=== PATIENT | female | born 1980 | race Caucasian/White ===

== ENCOUNTER 2017-03-02 22:00 | Inpatient (IN) | payer MEDICAID ==
[~2017-03-02] VITALS: Ht 170.2 cm; Wt 84.4 kg
--- NOTE | ~2017-03-02 | PN ---
Unit #: [id number] #: [id number] Patient: LEANN RODRIGUEZ [id number] [facility] [address] [place] [address] [id number] MR#: [id number] NAME: LEANN RODRIGUEZ ROOM: P209 Age: 36 Sex: F Admission Date: 03/03/2017 : 1980 Attending Physician: Danny Rankin M.D. Admitting Physician: Danny Rankin M.D. Primary Care Physician: Generic Doctor Not In System [facility] PROGRESS NOTES DATE 03/04/2017 DISCUSSION Ms. Rodriguez is a 36-year-old white female who was seen today and chart was reviewed and case was discussed with the staff. She has been anxious, withdrawn and rather seclusive to herself and has been complaining of poor sleep at night. Meanwhile, she has been taking medications and tolerating them fairly well with no reported side effects. MENTAL STATUS EXAMINATION Young white female who was casually dressed with fair personal hygiene, appears to be in no acute distress or discomfort. She was awake and alert on interaction with intact orientation. Her mood was anxious with congruent affect. She denies any suicidal or homicidal ideations. Her insight and judgement remains slightly impaired. TREATMENT PLAN 1. We will continue her on her current medications and treatment protocol. We will monitor her response to the medication and make further adjustments as needed. 2. We will continue to follow up. Dictated by... Jez Mccauley/antoni TD: 03/05/2017 21:59 JOB #: [id number] Unit #: [id number] #: [id number] Patient: LEANN RODRIGUEZ PROGRESS NOTES Page 1 of 1 X Danny Rankin MD X PROGRESS NOTE
--- NOTE | ~2017-03-02 | PN ---
Unit #: [id number] #: [id number] Patient: LEANN RODRIGUEZ [id number] [facility] [address] [place] [address] [id number] MR#: [id number] NAME: LEANN RODRIGUEZ ROOM: P209 Age: 36 Sex: F Admission Date: 03/03/2017 : 1980 Attending Physician: Danny Rankin M.D. Admitting Physician: Danny Rankin M.D. Primary Care Physician: Generic Doctor Not In System [facility] PROGRESS NOTES DATE OF SERVICE 03/05/2017 DISCUSSION Ms. Rodriguez is a 36-year-old white female who was seen today. Chart was reviewed and case was discussed with staff. She reports being much better after she slept good last night with the addition of trazodone and appears to be coming out of detox without any complications. She has been taking the medications and tolerating them fairly well with no reported side effects. MENTAL STATUS EXAMINATION Young white female who is casually dressed with fair personal hygiene, appears to be in no acute distress or discomfort. She was awake and alert on interaction with intact orientation. Her mood is anxious with congruent affect. She denies any suicidal or homicidal ideations and also denies any auditory or visual hallucinations. Her insight and judgment remain slightly impaired. TREATMENT PLAN 1. We will continue her on her current medications and treatment protocol. We will monitor her response to medications and make further adjustments as needed. 2. We will continue to follow up. Dictated by... Danny Rankin M.D. IAA/bzg TD: 03/06/2017 08:55 JOB #: [id number] Unit #: [id number] #: [id number] Patient: LEANN RODRIGUEZ [facility] PROGRESS NOTES Page 1 of 1 X Danny Rankin MD PROGRESS NOTE
--- NOTE | ~2017-03-02 | PA ---
Unit #: [id number] #: [id number] Patient: LEANN RODRIGUEZ [id number] [facility] [address] [place] [address] [id number] MR#: [id number] NAME: LEANN RODRIGUEZ ROOM: P209 Age: 36 Sex: F Admission Date: 03/03/2017 : 1980 Date of Assessment: 03/03/2017 Attending Physician: Danny Rankin M.D. Admitting Physician: Danny Rankin M.D. Primary Care Physician: Generic Doctor Not In System PSYCHIATRIC ASSESSMENT DATE OF SERVICE 03/03/2017. IDENTIFYING DATA Ms. Rodriguez is a 36-year-old white female, who is a resident of [place], [place], and was self-referred to the hospital on a voluntary basis as a transfer from [facility] Emergency Room. CHIEF COMPLAINT "I overdosed on my prescription medications." HISTORY OF PRESENT ILLNESS Ms. Hauser sis a 36-year-old white female, who was taken to the [facility] Emergency Room after she stated that she overdosed on her prescription medication. She took approximately 20 Paxil and 20 Requip and about 30 Benadryl and reports that she took them in a suicide attempt and that she has been off her oxycodone since Saturday and she wanted to go to sleep and to end it and reports that she takes 10 to 12 oxycodone 10 mg a day and then she also takes two Klonopin 1 mg a day and has used morphine 100 mg a day for the last 3 years and reports that her usage has been increased and she has been using pain pills and has been getting frustrated and increasingly hopeless about her situation and therefore, she decided to kill herself and was taken to the emergency room and was medically cleared and then transferred to us. SUBSTANCE ABUSE HISTORY The patient reports extensive history of substance abuse and dependence including alcohol, cannabis, opioids, cocaine, amphetamines, benzodiazepines, and methadone, and currently, opioids and benzodiazepines appear to be her drug of choice. PAST PSYCHIATRIC HISTORY The patient has had a history of multiple inpatient psychiatric treatment, and she reports that she is from [place] and she recently moved to [place] and that she has had eight hospitalizations at [facility] in [place] as well as at [facility] in [facility] and has been diagnosed and treated for mood disorder and is supposed to be on Paxil and Requip. PAST MEDICAL HISTORY The patient's medical history is insignificant. Unit #: [id number] #: [id number] Patient: LEANN RODRIGUEZ ALLERGIES No known medication allergies. PERSONAL AND SOCIAL HISTORY A 36-year-old white female, who reports that she is single and unemployed and essentially homeless and has poor social support system. MENTAL STATUS EXAMINATION Young white female, who was casually dressed with fair personal hygiene, appears to be in no acute distress or discomfort. She was awake and alert on interaction with intact orientation to time, place, and person. Her mood was anxious and depressed with a congruent affect. Her speech was slow and restricted in content. Her thought processes were disorganized with some looseness of associations and flight of ideas and suicidal ideations. Her insight and judgment remain significantly impaired. DIAGNOSTIC IMPRESSION Psychiatric: Major depressive disorder, recurrent, moderate, without psychotic features; opioid dependence, moderate, in acute withdrawals; and benzodiazepine abuse, moderate. Medical: None. Stressors: Moderate psychosocial stressors. TREATMENT PLAN 1. The patient has presented with a history of substance abuse and mood disorder and has been decompensating and will need inpatient hospitalization for safety and stabilization. We will start her back on her home medications and we will adjust the medications and monitor response. 2. Supportive therapy was provided to the patient. 3. Safe, structured, and nourishing environment will be provided. ESTIMATED LENGTH OF STAY 5 to 7 days. ABILITY TO HELP SELF Limited. WILLINGNESS TO HELP SELF The patient appears to be willing to help self. STRENGTHS 1. Communicative. 2. Cooperative. PROBLEMS 1. Chronic dysphoric symptoms. 2. Poor social support system. DISCHARGE CRITERIA This will be contingent upon the patient's ability to show resolution of her depression and anxiety and her ability to stay safe to herself, particularly after discharge from the hospital. Dictated by... Danny Rankni M.D. Unit #: [id number] #: [id number] Patient: LEANN RODRIGUEZ IAA/modl TD: 03/03/2017 17:37 JOB #: [id number] PSYCHIATRIC ASSESSMENT Page 1 of 1 X Danny Rankin MD PSYCHIATRIC ASSESSMENT
--- NOTE | ~2017-03-02 | HP ---
Unit #: [id number] #: [id number] Patient: LEANN FERRER [id number] [place] [address] [id number] MR#: [id number] NAME: LEANN FERRER ROOM: P209 Age: 36 Sex: F Admission Date: 03/03/2017 : 1980 Attending Physician: Danny Rankin M.D. Admitting Physician: Danny Rankin M.D. Primary Care Physician: Generic Doctor Not In System HISTORY AND PHYSICAL HISTORY OF PRESENT ILLNESS Patient is a 36-year-old female admitted to [address] [place] [address] on 03/03/2017 for suicidal ideations with an attempt to overdose. She also is addicted to illicit and prescription medications. PAST MEDICAL HISTORY 1. Prescription and illicit drug abuse. 2. Depression and anxiety. 3. Restless leg syndrome. PAST SURGICAL HISTORY 1. Cholecystectomy. 2. Appendectomy. 3. Bilateral tubal ligation. SOCIAL HISTORY She is unemployed. She lives with her and two children. She has a history of polysubstance use including cocaine, morphine, Oxycontin, methamphetamines and Klonopin. FAMILY MEDICAL HISTORY Noncontributory. ALLERGIES No known drug allergies. CURRENT MEDICATIONS Paxil and Requip. REVIEW OF SYSTEMS CONSTITUTIONAL: No fever or chills. HEENT: Denies any sore throat, ear pain or runny nose. CARDIOVASCULAR: Denies chest pain, irregular heart rhythm or palpitations. CHEST: Denies shortness of breath or cough. No hemoptysis. GASTROINTESTINAL: Denies nausea, vomiting, diarrhea or chronic constipation. ENDOCRINE: Denies history of increased thirst or urination. No recent significant weight loss or gain. GENITOURINARY: Denies dysuria, frequency, or hematuria. SKIN: Denies any rashes. HEMATOLOGIC: Denies history of increased bleeding or bruising. MUSCULOSKELETAL: Denies any hot, swollen joints. No generalized muscle pain. Unit #: [id number] #: [id number] Patient: LEANN FERRER NEUROLOGIC: Denies problems with vision or speech. No frequent, severe headaches. No numbness, tingling or weakness in any extremities. Denies loss of bladder or bowel control. PHYSICAL EXAM GENERAL: She is awake, alert and oriented in no acute distress. VITAL SIGNS: Temperature 98.7, heart rate 193, respiration 18, blood pressure 112/73. HEIGHT: 5'7". WEIGHT: 186 pounds. SKIN: Warm and dry without rash or lesion. HEENT: Normocephalic. TMs not viewed. Oral and nasal passages clear. Conjunctivae clear. PERRLA. EOMs intact. NECK: Supple without lymphadenopathy or thyromegaly. HEART: Regular rate and rhythm without murmur. LUNGS: Clear. ABDOMEN: Soft, nontender. : Not done. EXTREMITIES: No evidence of cyanosis, clubbing or edema. Moves all without focal deficit. NEUROLOGICAL: Grossly within normal limits. Cranial Nerves: II: Visual hays are intact. III, IV AND : Extraocular movements are intact. Pupils are equal, round and reactive to light. V: Facial sensation is grossly normal. VII: Facial movements and expression are normal. VIII: Auditory acuity grossly intact. IX, X: Uvula is midline. Phonation is normal. XI: Patient shrugs shoulders and turns head normally. XII: Tongue protrudes in the midline. Sensory and Motor Function: Sensory and motor sensation is grossly normal. Motor: moves all extremities well. IMPRESSION 1. Psychiatric admission. 2. Drug abuse. 3. Depression and anxiety. 4. Restless leg syndrome. RECOMMENDATIONS Psychiatric per psychiatrist. MEDICAL: No contraindication to participate in facility activities. MEDICAL PROGNOSIS Good. MEDICAL CONDITION Stable. Dictated by... Venkata Bautista Unit #: [id number] #: [id number] Patient: LEANN FERRER TD: 03/03/2017 23:39 JOB #: [id number] HISTORY AND PHYSICAL Page 1 of 1 X CHARIS HIRSCH APRN HISTORY AND PHYSICAL
--- NOTE | ~2017-03-02 | DS ---
Unit #: [id number] #: [id number] [facility]: [facility] [id number] [facility] [address] [place] [address] [id number] MR#: [id number] NAME: LEANN RODRIGUEZ ROOM: P209 Age: 36 Sex: F Admission Date: 03/03/2017 : 1980 Discharge Date: 03/06/2017 Attending Physician: Danny Rankin M.D. Primary Care Physician: Generic Doctor Not In System DISCHARGE SUMMARY IDENTIFYING DATA Ms. Rodriguez is a 36-year-old, , white female who is a resident of [place], [place] and was self-referred to the hospital on a voluntary basis as a transfer from [facility] [place] [facility] Emergency Room. DISCHARGE DIAGNOSES Psychiatric: Major depressive disorder, recurrent, moderate, without psychotic features; opioid dependence, moderate and acute withdrawals; benzodiazepine dependence, moderate. Medical: None. Stressors: Moderate psychosocial stressors. HISTORY OF PRESENT ILLNESS Please see initial psychiatric evaluation for details. PAST PSYCHIATRIC HISTORY Please see initial psychiatric evaluation for details. PAST MEDICAL HISTORY Please see initial psychiatric evaluation for details. HOSPITAL COURSE The patient [facility] and was oriented to the hospital environment. Routine p.r.n. medications were initiated, and she was started back on her home medications and medications were adjusted and she was closely monitored. She was maintained on her home supply of Paxil and Requip, and opioid detox protocol was initiated. She was initially seen to be restless, anxious, and rather uncomfortable, though was able to come out of the detox without any complications and was willing to continue treatment on an outpatient basis and as such, it was decided that she will be discharged home and will continue treatment on an outpatient basis. DISCHARGE MEDICATIONS Paxil 30 mg a day for depression and Requip 1 mg at bedtime for restless legs syndrome. DISCHARGE CONDITION Stable. PROGNOSIS Fair. Unit #: [id number] #: [id number] Patient: LEANN RODRIGUEZ Dictated by... Jez Mccauley/kervinl TD: 03/06/2017 19:16 JOB #: [id number] DISCHARGE SUMMARY Page 1 of 1 X Danny Rankin MD DISCHARGE SUMMARY
== END 2017-03-06 12:45 | DRG 885 ==
LOC: P2S 03-03 02:32
DX: F33.1 Major depressive disorder, recurrent, moderate (principal); F11.23 Opioid dependence with withdrawal; G25.81 Restless legs syndrome; F13.10 Sedative, hypnotic or anxiolytic abuse, uncomplicated